=== PATIENT | female | born 1955 ===

== ENCOUNTER 2017-04-23 13:09 | Outpatient (RCR) | payer MEDICARE | END 2017-04-25 | LOC: EDSEX → OT 13:09 | PROVIDERS: ATTEND Surgery Surgery of the Hand | DX: M19.041 Primary osteoarthritis, right hand (principal); S63.8X1D Sprain of other part of right wrist and hand, subsequent encounter; M79.641 Pain in right hand; R53.1 Weakness | CPT/HCPCS: 97010; 97035; 97165; L3808 ==

== ENCOUNTER 2017-05-07 13:53 | Outpatient (RCR) | payer MEDICARE | END 2017-05-26 | LOC: OT 13:53 | PROVIDERS: ATTEND Surgery Surgery of the Hand | DX: S63.8X1D Sprain of other part of right wrist and hand, subsequent encounter (principal); M19.041 Primary osteoarthritis, right hand; M79.641 Pain in right hand; R53.1 Weakness ==